=== PATIENT | male | born 1970 | race Caucasian/White ===

== ENCOUNTER 2024-11-26 10:50 | Day surgery (SDC) | payer BC ==
[2024-11-26 09:32] LABS: Absolute Basophils 0.1 K/uL (0-0.5); Absolute Eosinophils 0.3 K/uL (0-0.5); Absolute Lymphocytes (CBC) 2.4 K/uL (0.7-4.9); Absolute Monocytes 0.5 K/uL (0.1-1.3); Absolute Neutrophil 4.5 K/uL (1.8-8.0); Basophils % 1.1 % (0-1.3); Eosinophils % 4.2 % (0-4.4); Hematocrit 49.2 % (39.6-49.0); Hemoglobin 17.5 g/dL (13.6-17.9); Lymphocytes % 30.8 % (15.3-44.8); MCH 31.4 pg (27.0-35.0); MCHC 35.5 g/dL (32.0-36.0); MCV 88.4 fL (80-100); MPV 7.8 fL (7.6-11.3); Monocytes % 5.9 % (3.3-12.3); Platelets 306 thou/uL (152-406); RBC Red Blood Cell Count 5.57 M/uL (4.33-5.43); Red Cell Distribution Width 13.6 % (12.1-15.2)
[2024-11-26 09:52] LABS: Albumin 3.8 g/dL (3.4-5.0); Albumin/Globulin Ratio 0.9 (1.1-1.8); Anion Gap 8.9 mEq/L (5.0-15.0); Bilirubin Direct 0.3 mg/dL (0-0.2); Bilirubin Indirect, Calculated 0.5 mg/dL (0.2-0.8); Bilirubin Total 0.8 mg/dL (0.2-1.0); Globulin 4.1 g/dL (2.3-3.5); Potassium 3.9 mEq/L (3.5-5.1); Protein, Total 7.9 g/dL (6.4-8.2)
--- NOTE | 2024-11-26 10:01 | RAD REPORT ---
Procedure: Chest Pa And Lat (2 Views) HISTORY: Preop for gallbladder surgery COMPARISON: none FINDINGS: The lungs appear clear of acute infiltrate. No significant pleural effusion noted. The heart is normal size. IMPRESSION: No acute abnormality is displayed.
[2024-11-26 10:21] LABS: Blood Morphology Comment NOT SEEN (NOT SEEN); Platelet Estimate ADEQ; White Blood Cell Scan OK (OK)
[2024-11-26] MEDS: Ringers Lactate 1,000 ML IV ONE ×2 (11:30→15:00)
[2024-11-26] MEDS ORDERED: MIDAZOLAM HCL 2 MG/2 ML INJ ONE (12:00)
[2024-11-26] MEDS ORDERED: LIDOCAINE 2% MPF 5 ML VIAL ONE (12:00)
[2024-11-26] MEDS ORDERED: ONDANSETRON 4 MG/2 ML VIAL ONE (12:00)
[2024-11-26] MEDS ORDERED: FENTANYL CITR 100 MCG/2 ML ONE ×2 (12:00→13:47)
[2024-11-26] MEDS ORDERED: propofoL 200 MG/20 ML VIAL IV ONE (12:00)
[2024-11-26] MEDS ORDERED: ROCURONIUM 50 MG/5 ML VIAL IV ONE ×2 (12:00→14:05)
[2024-11-26] MEDS: SUGAMMADEX SODIUM 200 MG/2 ML VIAL IV ONE (12:05)
[2024-11-26] MEDS ORDERED: dexAMETHasone 10 MG/ML VIAL ONE (13:11)
[2024-11-26] MEDS: CEFOXITIN SODIUM 1 GM/VIAL ONE (13:13)
[2024-11-26] MEDS ORDERED: GLYCOPYRROLATE 0.2 MG/ML SYR ONE (13:37)
[2024-11-26] MEDS ORDERED: EPHEDRINE SULF 50 MG/ML VIAL ONE (13:38)
[2024-11-26] MEDS ORDERED: Mastisol Adhesive Liq ONE (15:16)
--- NOTE | 2024-11-26 15:40 | P.BOP ---
Preoperative diagnosis: acute cholecystitis, symptomtic cholelithiasis Postoperative diagnosis: same Primary procedure: 1. Laparoscopic cholecystectomy Secondary procedure: 2. Laparoscopic lysis of adhesions Financial Service Professional: Bessy Eubanks) Estimated blood loss: <50cc Specimen: gb Findings: inflammed gallbladder with multiple intrabdom adhesions Anesthesia: General Complications: None Drain(s): ANABELA drain Transferred to: Recovery Room Condition: Good
[2024-11-26] MEDS: HYDROMORPHONE HCL 1 MG/ML INJ ONE (15:50)
[2024-11-26] MEDS ORDERED: ONDANSETRON 4 MG/2 ML VIAL IV PRN (16:10)
--- NOTE | 2024-11-26 17:23 | RAD REPORT ---
EXAM: Fluoroscopy use, Cholangiogram Oper-Xray Or HISTORY: [facility] W/ IOC COMPARISON: None FINDINGS: A total of 3 images were sent to PACS, during a fluoroscopically guided laparoscopic cholec ystomy with intraoperative cholangiogram. No radiologist was involved in protocoling or performance of the study, and no radiologist was present for the duration of the procedure. No interpretation of the saved images will be provided. Total fluoroscopy time: 0.1 minutes. IMPRESSION: Documentation of fluoroscopy use as above.
[2024-11-26 17:40] VITALS: O2SAT 95
[2024-11-26] MEDS: CEFOXITIN 1 GM in NA CHLORIDE 0.9% 50 ML IVPB SCH (18:00)
[2024-11-26] MEDS: HYDROCODONE/APAP 5/325 MG TAB PO PRN (19:51)
[2024-11-26] MEDS: NA CHLORIDE 0.9% 1,000 ML IV SCH (20:31)
[2024-11-27] MEDS: HYDROMORPHONE HCL 1 MG/ML INJ IV PRN (00:39)
--- NOTE | 2024-11-27 02:01 | OP ---
Date of Procedure: 11/26/2024 Surgeon: Bert Vergara MD Housekeeping Supervisor Hotel: [employer]. Preoperative Diagnoses: Acute cholecystitis, symptomatic cholelithiasis. Postoperative Diagnoses: Acute cholecystitis, symptomatic cholelithiasis plus intraabdominal adhesio ns. Procedures: Laparoscopic cholecystectomy, laparoscopic lysis of adhesions. Estimated Blood Loss: Less than 50 cc. Specimen: Gallbladder. Findings: Inflamed gallbladder with multiple intraabdominal adhesions. Anesthesia: General plus local. Drains: ANABELA #10. Indications: This is a case of a 54-year-old patient who comes to us with abdominal pain. It has be en 2 years on and off. In the last few weeks, it has been the worse. We advised him of our all surg ical options, laparoscopic, possible open cholecystectomy with benefits, alternatives, and risks incl uding, but not limited to infection, bleeding, damage to adjacent structures, anesthesia complication , choledocholithiasis, bile leak, pancreatitis, DE, and . He also understands this may not reli ernesto his symptoms. He might need more than one surgical intervention. Due to chronic inflammation on and off, we also advised him the possibility of open surgery, drains, choledocholithiasis, even over night admission. He discussed that with the . is present. They understood and signed the consent. Description Of Procedure: The patient was brought to the operating room and placed in supine positio n. Anesthesia was induced without complication. Abdominal area was prepped and draped in a sterile fashion. Marcaine 0.5% was injected for local anesthetic followed by sharp incision of the skin in t he infraumbilical region. Incision was carried down to fascia, which was opened under direct vision. Vicryl #1 was placed inside the fascia. Cherry trocar was carefully introduced. No bleeding was o btained. I placed 3 more trocars, 5 mm each one of them, 1 in epigastric area, 2 in the right upper quadrant using same technique, which consisted of local anesthetic, sharp incision of the skin and in troduction of the trocars under direct vision. Probably due to chronic inflammation, we had multiple omental adhesions to the liver and the gallbladder, and in order for us to identify the gallbladder properly, we took probably half the time of the case just getting those adhesions down with the help of LigaSure. At that moment, we proceeded to identify the fundus of the gallbladder and the infundib ulum. A grasper was placed in the fundus of the gallbladder, another grasper in infundibulum retract ing the gallbladder in the inferolateral fashion exposing the triangle of Calot and obtaining critica l view. The cystic duct and cystic artery were clearly isolated and freed circumferentially, and a c onnection between those and the gallbladder were clearly identified. The excision got a little bit l arge, so I attempted to do a cholangiogram, but when the cholangiogram catheter goes through the open ing in the cystic duct, it does not seal the contrast properly and I am afraid I put the contrast dur ing these conditions, this dropped the view. The gallbladder was very friable, the more we keep pull ing, the more it is going to be ripened. We identified the cystic duct properly. The connection bet ween that and the gallbladder was clearly identified circumferentially. We had also , but i s a little bit too big for the clips, so we used 5 mm clips to take care of the cystic artery, 2 clip s proximal, 1 clip distal, ligation in the middle and that was , that gave us a clear view o f the cystic duct. I changed the epigastric trocar to a 12 mm trocar to allow me to put an Endo JEFF 45. We proceeded that in the base of the gallbladder. When getting into the cystic duct, we made cristina re that we go circumferentially across completely, close the Endo-JEFF, fire the JEFF. The JEFF was rem sadiq. There was no bile leak. At that moment, I proceeded to remove the gallbladder from the liver using Bovie cauterizer and removed the gallbladder from abdominal cavity using the EndoCatch through the umbilical incision. The area was inspected once again, no bile leak. No bleeding. The area of lysis of adhesions showed no bleeding. Gallbladder fossa looks intact. Hepatic arteries and common bile duct were protected at all times. Cystic duct still has a clip in place. Once we made sure we checked before clips, we made sure they were intact at that moment too. At that moment, we proceeded then to leave a ANABELA drain in that area as well as the inflammation in that region previously and I wa nt to make sure a ANABELA drain in that area to help us with the drainage. The ANABELA drain was exiting to on e of the trocar site and secured in place with 3-0 nylon. After securing hemostasis, we proceeded th en to remove the trocars under direct vision, deflated pneumoperitoneum, closed the fascia with #1 Vi cryl, irrigated subcutaneous tissue, closed that with 3-0 chromic and the skin in a subcuticular fash ion with 3-0 chromic and Steri-Strips on top. Sponge count and instrument counts were correct. The patient tolerated the procedure well. The patient was sent to recovery in stable condition. Bile is just a clear liquid. No bile. No blood. HM/MODL Voice ID: [id number] Report ID: [id number]
[2024-11-27 06:39] LABS: Absolute Basophils 0.1 K/uL (0-0.5); Absolute Lymphocytes (CBC) 1.2 K/uL (0.7-4.9); Absolute Monocytes 0.2 K/uL (0.1-1.3); Absolute Neutrophil 10.2 K/uL (1.8-8.0); Basophils % 0.5 % (0-1.3); Hematocrit 45.2 % (39.6-49.0); Hemoglobin 15.5 g/dL (13.6-17.9); Lymphocytes % 10.5 % (15.3-44.8); MCH 31.1 pg (27.0-35.0); MCHC 34.2 g/dL (32.0-36.0); MCV 90.8 fL (80-100); Monocytes % 1.6 % (3.3-12.3); Neutrophils % 87.4 % (41.7-73.7); Nucleated Red Blood Cells % 0.1 % (0-0); Platelets 336 thou/uL (152-406); RBC Red Blood Cell Count 4.98 M/uL (4.33-5.43); Red Cell Distribution Width 13.5 % (12.1-15.2)
[2024-11-27 09:12] VITALS: TEMP 98
[2024-11-27 13:01] VITALS: BP 154/91
[2024-11-27 13:17] LABS: Albumin 3.6 g/dL (3.4-5.0); Bilirubin Direct 0.2 mg/dL (0-0.2); Bilirubin Indirect, Calculated 0.5 mg/dL (0.2-0.8); Bilirubin Total 0.7 mg/dL (0.2-1.0); Globulin 3.7 g/dL (2.3-3.5); Protein, Total 7.3 g/dL (6.4-8.2)
--- NOTE | 2024-11-27 13:34 | P.DS ---
Discharge Date: 11/27/24 Disposition: ROUTINE DISCHARGE Discharge Condition: GOOD Brief History of Present Illness: 54 male with acute cholecystitis, intrabdominal adhesions Vital Signs/Physical Exam: Temp Pulse Resp BP Pulse Ox 98.0 F 82 18 154/91 H 95 11/27/24 12:00 11/27/24 12:00 11/27/24 12:00 11/27/24 12:00 11/27/24 12:00 General: Alert, Oriented x3 HEENT: PERRLA, EOMI Neck: Supple Cardiovascular: Normal pulses Gastrointestinal: Soft and benign, Other (julio serosanguinous) Integumentary: No erythema, No warmth, No cyanosis Neurological: Normal speech Laboratory Data at Discharge: WBC 11.70 thou/uL (4.3-10.9) H 11/27/24 06:04 Hgb 15.5 g/dL (13.6-17.9) D 11/27/24 06:04 Hct 45.2 % (39.6-49.0) 11/27/24 06:04 Plt Count 336 thou/uL (152-406) 11/27/24 06:04 Sodium 137 mEq/L (136-145) 11/27/24 06:04 Potassium 4.0 mEq/L (3.5-5.1) 11/27/24 06:04 BUN 11 mg/dL (7-18) 11/27/24 06:04 Creatinine 1.39 mg/dL (0.70-1.30) H 11/27/24 06:04 Glucose 163 mg/dL (74-106) H 11/27/24 06:04 Total Bilirubin Cancelled 11/27/24 12:51 AST Cancelled 11/27/24 12:51 ALT Cancelled 11/27/24 12:51 Alkaline Phosphatase Cancelled 11/27/24 12:51 Lipase 33 U/L (13-75) 11/26/24 09:20 Home Medications: Ascorbic Acid [Vitamin C] 1,000 mg PO BEDTIME 11/26/24 Cholecalciferol (Vitamin D3) [Vitamin D 400 IU TAB*] 1 tab PO BEDTIME 11/26/24 Diphenhydramine HCl [Benadryl Allergy] 25 mg PO DAILY PRN 11/26/24 Magnesium [Magnesium Gluconate] 200 mg PO DAILY 11/26/24 Physician Discharge Instructions: Keep surgical area for 48h then may remove outer dressing and shower. Keep sterile strips intact. JULIO to bulb suction. Record output q24 Diet: AHA Activity: No lifting more than 10 lbs Followup: Bert Vergara MD [Primary Care Provider] - 12/01/24 2:00 pm
--- NOTE | 2024-11-30 12:28 | EKG ---
Test Date: 2024-11-26 Test Time: 10:23:48 Supervisor Evaporator: ARINA MEASUREMENT RESULTS: Intervals: Rate: 62 NC: 128 QRSD: 102 QT: 412 QTc: 418 [place]: P: 74 NC: 128 QRS: 69 T: 49 INTERPRETIVE STATEMENTS: Normal sinus rhythm Normal ECG No previous ECG available for comparison Electronically Signed On 11-30-24 12:20:25 STUDENT RECORDS COORDINATOR by Cristi Ca
== END 2024-11-27 14:45 | disposition home or self-care (01) ==
LOC: OR 10:50 → 4TH 16:10 → OR 11-27 14:45
PROVIDERS: ATTEND Surgery
PROC: 0DNW4ZZ Release Peritoneum, Percutaneous Endoscopic Approach (ICD-10-PCS; 2024-11-26)
PROC: 0FT44ZZ Resection of Gallbladder, Percutaneous Endoscopic Approach (ICD-10-PCS; principal; 2024-11-26 12:59)
DX: K80.20 Calculus of gallbladder without cholecystitis without obstruction (principal); K66.0 Peritoneal adhesions (postprocedural) (postinfection); R10.11 Right upper quadrant pain
CPT/HCPCS: 93005; 85025 ×2; 80048 ×2; 36415; 80076 ×2; 88304; 83690; 74300; 71046; 47562; 49329; J2704; J2003; J2250; J3010 ×2; J1100; J1171 ×4; J0694 ×3; J2405; J7120 ×2; J7030 ×2